=== PATIENT | male | born 1995 | race Caucasian/White ===

== ENCOUNTER 2018-01-27 10:20 | Emergency (ER) | payer SELFPAY ==
[2018-01-27] MEDS ORDERED: Lidocaine 1%* 5 ML VIAL INJ ONE (11:17)
--- NOTE | 2018-01-27 12:03 | RAD ---
INDICATION: Bruising to the right index finger after a lawnmower injury COMPARISON: None. TECHNIQUE: 3 views of the right index finger were obtained. FINDINGS: The bones are normal alignment. Joint spaces appear maintained. No fracture is seen. IMPRESSION: NO EVIDENCE FOR FRACTURE, IF THE PATIENT'S SYMPTOMS PERSIST RECOMMEND FOLLOW-UP IMAGING.
[2018-01-27] MEDS ORDERED: Ibuprofen TAB* 600 MG PO ONE (12:54)
[2018-01-27 13:13] VITALS: BP 126/77
--- NOTE | 2018-01-27 16:11 | ED ---
Upper Extremity Pain - HPI Summary HPI Summary: Patient is a 22-year-old male who presents emergency department for an injury to his right second digit that occurred just prior to arrival. Patient states he was mowing the lawn and an object got stuck in the blade and he stuck his hand in to remove object. Patient's finger was struck with blade. No laceration was sustained. Patient notes pain to the distal finger as well as blood under fingernail. Symptoms are mild in severity. Moving and touching finger makes symptoms worse. Nothing makes symptoms better. - History of Current Complaint Chief Complaint: EDExtremityUpper Stated Complaint: RT HAND INJURY Time Seen by Provider: 01/27/18 11:02 Hx Obtained From: Patient - Allergies/Home Medications Allergies/Adverse Reactions: Allergies Allergy/AdvReac Type Severity Reaction Status Date / Time No Known Allergies Allergy Verified 01/27/18 10:55 Home Medications: Home Medications NK [No Home Medications Reported] 01/27/18 [History Confirmed 01/27/18] PMH/Surg Hx/FS Hx/Imm Hx Previously Healthy: Yes Infectious Disease History: No Infectious Disease History: Denies: Traveled Outside the [place] in Last 30 Days - Social History Occupation: Employed Full-time Lives: With Family Alcohol Use: Occasionally Alcohol Amount: 3x week Substance Use Type: Reports: Marijuana Smoking Status (MU): Heavy Every Day Tobacco Smoker Review of Systems Positive: Other - pain to right second digit All Other Systems Reviewed And Are Negative: Yes Physical Exam Triage Information Reviewed: Yes Vital Signs On Initial Exam: Initial Vitals Temp Pulse Resp BP Pulse Ox 97.6 F 61 16 132/87 100 01/27/18 10:49 01/27/18 10:49 01/27/18 10:49 01/27/18 10:49 01/27/18 10:49 Vital Signs Reviewed: Yes Appearance: Positive: Well-Appearing - Patient sitting on bed in no acute distress. Significant other present. Head/Face: Positive: Normal Head/Face Inspection Eyes: Positive: Normal, JOEL Neck: Positive: Supple Musculoskeletal: Positive: Other - Sub-ungual hematoma encompassing the entire right second no better and. Significant pain with palpation of the distal finger. Mild ecchymosis to the palmar aspect. No laceration. Full range of motion of digit, tendons are intact. Neurological: Positive: Normal, CN Intact II-III Psychiatric: Positive: Normal Procedures - Procedure Summary Procedure Summary: Digital block was performed to second digit of right hand. 4 cc of lidocaine was used. Block was successful. Nail was cleansed with Betadine and an 18- gauge needle was used to trephinate the nail bed. A A moderate amount of blood was expressed. Patient tolerated well. Sterile dressing was placed. Finger splint was also given for comfort and protection. Diagnostics - Vital Signs Vital Signs Temp Pulse Resp BP Pulse Ox 01/27/18 13:12 98.5 F 60 17 126/77 98 01/27/18 10:49 97.6 F 61 16 132/87 100 - Laboratory Lab Statement: Any lab studies that have been ordered have been reviewed, and results considered in the medical decision making process. Course/Dx - Course Course Of Treatment: Patient presenting for a finger injury. X rays are negative for fracture or dislocation, reading per radiology. Patient sustained a large subungual hematoma to the second digit. It was trephinated as noted above. Patient's pain significantly improved after procedure. Advised patient to keep the wound clean and dry. Wear splint for comfort. Tylenol or Motrin for pain as directed. Will follow up with his family doctor. - Diagnoses Provider Diagnoses: Fingertip contusion, Subungual hematoma of digit of hand Discharge - Sign-Out/Discharge Documenting (check all that apply): Discharge/Admit/Transfer - Discharge Plan Condition: Good Disposition: HOME Patient Education Materials: Subungual Hematoma (ED) Forms: *Work Release Referrals: April Savage MD [Primary Care Provider] - Additional Instructions: Follow up with your PCP Keep nail clean and dry Wear splint for comfort Ice and elevate Tylenol or Motrin for pain as directed Return to ER for redness or purulent drainage - Billing Disposition and Condition Condition: GOOD Disposition: HOME
== END 2018-01-27 13:12 | disposition home or self-care (01) ==
LOC: ED 10:20
DX: S61.310A Laceration without foreign body of right index finger with damage to nail, initial encounter (principal); W31.89XA Contact with other specified machinery, initial encounter; Y93.H2 Activity, gardening and landscaping; Y92.9 Unspecified place or not applicable
CPT/HCPCS: 73140; 99282; A9270-GY

== ENCOUNTER 2019-02-14 09:14 | Emergency (ER) | payer SELFPAY ==
--- NOTE | 2019-02-14 10:42 | ED ---
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 Started as neck pain earlier in the week - this has improved but has had elbow/forearm pain /tightness since. Lt hand pain this morning - felt like he "slept wrong". Worse w/ gripping in hand only. Took Aleve 2 hrs ago and pain is improving. Denies numbness/tingling/weakness, fever, chills, skin changes, acute injury, CP, SOB. Neck is fine today. No h/o injury to this area or extremity and no h/o clots. - History of Current Complaint Chief Complaint: EDExtremityUpper Stated Complaint: LEFT HAND INJURY PER PT Time Seen by Provider: 02/14/19 09:46 Hx Obtained From: Patient - Allergies/Home Medications Allergies/Adverse Reactions: Allergies Allergy/AdvReac Type Severity Reaction Status Date / Time No Known Allergies Allergy Verified 02/14/19 09:23 PMH/Surg Hx/FS Hx/Imm Hx Previously Healthy: Yes Endocrine/Hematology History: Denies: Hx Anticoagulant Therapy, Hx Blood Disorders, Hx Coagulopothy Cardiovascular History: Denies: Other Cardiovascular Problems/Disorders Musculoskeletal History: Denies: Hx Arthritis, Hx Tendonitis, Hx of Fracture(s) Infectious Disease History: No Infectious Disease History: Denies: Traveled Outside the [place] in Last 30 Days - Family History Known Family History: Positive: None - Social History Occupation: Employed Full-time - [employer] Alcohol Use: Occasionally Alcohol Amount: 3x week Hx Substance Use: Yes Substance Use Type: Reports: Marijuana Hx Tobacco Use: Yes Smoking Status (MU): Heavy Every Day Tobacco Smoker Review of Systems Constitutional: Negative Negative: Fever, Chills, Fatigue Cardiovascular: Negative Negative: Chest Pain Respiratory: Negative Negative: Shortness Of Breath, Cough Gastrointestinal: Negative Negative: Nausea Positive: no symptoms reported Positive: Myalgia, Edema Skin: Negative Neurological: Negative Psychological: Normal All Other Systems Reviewed And Are Negative: Yes Physical Exam - Summary Physical Exam Summary: Mild edema of Lt phlaanges - mild tender to palpation - FROM but is uncomfortable - reduced attendance officer comared to Rt d/t pain sensatoin and motor intatc neck, shou.tiara,elbow WNL and NTTP skin normal Triage Information Reviewed: Yes Vital Signs On Initial Exam: Initial Vitals Temp Pulse Resp BP Pulse Ox 97.5 F 63 16 139/76 96 02/14/19 09:15 02/14/19 09:15 02/14/19 09:15 02/14/19 09:15 02/14/19 09:15 Vital Signs Reviewed: Yes Appearance: Positive: Well-Appearing, No Pain Distress, Well-Nourished Skin: Positive: Warm, Skin Color Reflects Adequate Perfusion, Dry - well perfused (radial pulses + 2 equal B/L, cap refill < 2 secs, temp equal B/L) - mild edema observed in 4th/5th Lt phalanges compared to Rt but no where else in UE is there edema, skin discoloration, vascular distention, etc Head/Face: Positive: Normal Head/Face Inspection Eyes: Positive: EOMI ENT: Positive: Hearing grossly normal Neck: Positive: Supple, Nontender Respiratory/Lung Sounds: Positive: Breath Sounds Present Cardiovascular: Positive: Normal, RRR, Pulses are Symmetrical in both Upper and Lower Extremities Musculoskeletal: Positive: Other - 4th/5th phalanges w/ mild TTP and along palmar surface but no other landmarks are TTP; no nicolle deformity. Negative: Strength/ROM Intact - Lt hand attendance officer slightly reduced compared to Rt d/t pain; no palpable cord-like structures along palmar surface Neurological: Positive: Normal, Sensory/Motor Intact, Alert, Oriented to Person Place, Time, CN Intact II-III Psychiatric: Positive: Normal - [place] Coma Scale Best Eye Response: 4 - Spontaneous Best Motor Response: 6 - Obeys Commands Best Verbal Response: 5 - Oriented Coma Scale Total: 15 Diagnostics - Vital Signs Vital Signs Temp Pulse Resp BP Pulse Ox 02/14/19 09:15 97.5 F 63 16 139/76 96 - Laboratory Lab Statement: Any lab studies that have been ordered have been reviewed, and results considered in the medical decision making process. Course/Dx - Course Course Of Treatment: Disucssed XR however given excellent health and no h/o acute injury w/ h/o what appears to be tendonitis, will refrain from further testing and advise and RICE w/ NSAID therapy. Will f/u as needed if same or worse despite recommendations. Reviewed danger s/sx of when to return to ED. Pt agrees w/ plan. - Diagnoses Provider Diagnoses: Left hand tendonitis Discharge - Sign-Out/Discharge Documenting (check all that apply): Patient Departure Patient Received Moderate/Deep Sedation with Procedure: No - Discharge Plan Condition: Stable Disposition: HOME Patient Education Materials: Tendinitis (ED) Forms: *Work Release Referrals: April Savage MD [Primary Care Provider] - Additional Instructions: Rest, ice, may compress with CHUY wrap as needed (gently - do not wrap tightly), elevation Continue aleve with food - may take acetaminophen for breakthrough pain May try topical analgesics (ie. biofreeze, bengay, etc) Hand/forearm stretches Follow-up with PCP if no relief after rest in 1 -2 weeks *If worse, return to ED - Billing Disposition and Condition Condition: STABLE Disposition: Home
[2019-02-14 11:10] VITALS: BP 128/81
== END 2019-02-14 11:09 | disposition home or self-care (01) ==
LOC: ED 09:14
DX: M77.9 Enthesopathy, unspecified (principal); F17.210 Nicotine dependence, cigarettes, uncomplicated; X50.3XXA Overexertion from repetitive movements, initial encounter; Y93.G3 Activity, cooking and baking; Y99.0 Civilian activity done for income or pay
CPT/HCPCS: 99282